=== PATIENT | male | born 1950 | race Caucasian/White ===

== ENCOUNTER 2018-12-14 08:39 | Inpatient (IN) | payer MEDICARE, OTHER ==
[2018-12-14 10:40] LABS: ADD MAN DIFF? NO
[2018-12-14 10:43] LABS: WHITE BLOOD COUNT 8.3 10^3/ul (4.8-10.8)
[2018-12-14 10:43] LABS: BASOPHILS % 0.4 % (0.0-2.0); EOSINOPHILS % 0.4 % (0.0-7.0); HEMATOCRIT 42.3 % (42.0-52.0); HEMOGLOBIN 14.6 g/dl (14.0-18.0); LYMPHOCYTES # 1.1 10^3/ul (0.8-2.9); LYMPHOCYTES % 12.7 % (15.0-51.0); MEAN CORPUSCULAR HEMOGLOBIN 32.1 pg (29.0-33.0); MEAN CORPUSCULAR HGB CONC 34.5 g/dl (32.0-37.0); MEAN PLATELET VOLUME 9.9 fl (7.4-10.4); MONOCYTES % 11.9 % (0.0-11.0); NEUTROPHIL # 6.2 10^3/ul (1.6-7.5); NEUTROPHILS % 74.2 % (39.0-77.0); PLATELET COUNT 190 10^3/UL (140-415); RED BLOOD COUNT 4.55 10^6/ul (4.70-6.10)
[2018-12-14 11:02] LABS: INR 0.98; PROTIME 13.1 Sec (11.9-14.9)
[2018-12-14 11:03] LABS: PARTIAL THROMBOPLASTIN TIME 38.8 Sec (23.0-35.0)
[2018-12-14 11:28] LABS: TROPONIN-I 0.621 ng/ml (0.000-0.120)
[2018-12-14 11:48] LABS: ANION GAP 11 (5-13); BLOOD UREA NITROGEN 25 mg/dl (7-20); CALCIUM 9.8 mg/dl (8.4-10.2); CARBON DIOXIDE 24 mmol/L (21-31); CHLORIDE 102 mmol/L (97-110); CHOL/HDL RATIO 3.3 RATIO; CHOLESTEROL 150 mg/dl (100-200); CREATININE 0.98 mg/dl (0.61-1.24); Estimated GFR > 60 mL/min (>60); GLUCOSE 136 mg/dl (70-220); HDL CHOLESTEROL 45 mg/dl (30-78); LDL CHOLESTEROL,CALCULATED 94 mg/dl; POTASSIUM 4.4 mmol/L (3.5-5.1); SODIUM 137 mmol/L (135-144); TRIGLYCERIDES 55 mg/dl (0-149)
[2018-12-14 12:22] LABS: HEMOGLOBIN A1C 5.5 % (0-5.9)
[2018-12-14] MEDS ORDERED: ACETAMINOPHEN 325 MG TAB PO (13:00)
[2018-12-14] MEDS ORDERED: ONDANSETRON 4 MG INJ IV (13:00)
[2018-12-14] MEDS: ASPIRIN 81 MG TAB PO (13:32)
[2018-12-14] MEDS ORDERED: NACL 0.9% 3 ML SYG IV (14:00)
[2018-12-14] MEDS: ASPIRIN 300 MG SUPP PR (14:05)
[2018-12-14] MEDS: QUETIAPINE 25 MG TAB NGT ×2 (16:24→22:53)
[2018-12-14] MEDS: DIAZEPAM 5 MG TAB PO (16:24)
[2018-12-14] MEDS: predniSONE 20 MG TAB PO (16:25)
[2018-12-14 17:09] LABS: TROPONIN-I 0.667 ng/ml (0.000-0.120)
[2018-12-14] MEDS: ALBUTEROL/IPRATROPIUM (NEB) 3 ML AMP HHN (20:47)
[2018-12-14] MEDS: LORAZEPAM 2 MG INJ IV (23:39)
[2018-12-15] MEDS: ALBUTEROL/IPRATROPIUM (NEB) 3 ML AMP HHN ×6 (01:24→20:28)
[2018-12-15 06:35] LABS: ADD MAN DIFF? NO
[2018-12-15 06:43] LABS: BASOPHILS % 0.2 % (0.0-2.0); HEMATOCRIT 42.5 % (42.0-52.0); HEMOGLOBIN 14.3 g/dl (14.0-18.0); LYMPHOCYTES # 1.2 10^3/ul (0.8-2.9); LYMPHOCYTES % 12.4 % (15.0-51.0); MEAN CORPUSCULAR HEMOGLOBIN 31.9 pg (29.0-33.0); MEAN CORPUSCULAR HGB CONC 33.6 g/dl (32.0-37.0); MEAN CORPUSCULAR VOLUME 94.9 fl (82.0-101.0); MEAN PLATELET VOLUME 10.3 fl (7.4-10.4); MONOCYTE # 0.8 10^3/ul (0.3-0.9); MONOCYTES % 8.4 % (0.0-11.0); NEUTROPHIL # 7.9 10^3/ul (1.6-7.5); NEUTROPHILS % 78.5 % (39.0-77.0); PLATELET COUNT 225 10^3/UL (140-415); RED BLOOD COUNT 4.48 10^6/ul (4.70-6.10)
[2018-12-15 07:27] LABS: ALANINE AMINOTRANSFERASE 22 IU/L (13-69); ALBUMIN 4.1 g/dl (3.3-4.9); ALBUMIN/GLOBULIN RATIO 1.24; ALKALINE PHOSPHATASE 109 IU/L (42-121); ANION GAP 13 (5-13); ASPARTATE AMINO TRANSFERASE 28 IU/L (15-46); BILIRUBIN,INDIRECT 0.5 mg/dl (0-1.1); BILIRUBIN,TOTAL 0.5 mg/dl (0.2-1.3); BLOOD UREA NITROGEN 17 mg/dl (7-20); CALCIUM 10.1 mg/dl (8.4-10.2); CARBON DIOXIDE 24 mmol/L (21-31); CHLORIDE 106 mmol/L (97-110); CREATININE 0.79 mg/dl (0.61-1.24); Estimated GFR > 60 mL/min (>60); GLUCOSE 107 mg/dl (70-220); POTASSIUM 4.1 mmol/L (3.5-5.1); SODIUM 143 mmol/L (135-144); TOTAL PROTEIN 7.4 g/dl (6.1-8.1)
[2018-12-15 07:49] LABS: TROPONIN-I 0.603 ng/ml (0.000-0.120)
[2018-12-15] MEDS: QUETIAPINE 25 MG TAB NGT (08:20)
[2018-12-15] MEDS: predniSONE 20 MG TAB PO (08:20)
[2018-12-15] MEDS: ASPIRIN 81 MG TAB PO (08:20)
[2018-12-15] MEDS: ENOXAPARIN 30 MG/0.3 ML SYG SC (08:21)
[2018-12-15 08:55] LABS: HEMOGLOBIN A1C 5.5 % (0-5.9)
[2018-12-15] MEDS: QUETIAPINE 25 MG TAB PO (10:24)
[2018-12-15] MEDS: LORAZEPAM 2 MG INJ IV (16:02)
[2018-12-15] MEDS ORDERED: MAGNESIUM HYDROXIDE 30ML CUP PO (17:00)
[2018-12-15] MEDS ORDERED: ALBUTEROL HFA 8 GM INHALER INH (17:00)
[2018-12-15] MEDS ORDERED: hydrOXYzine PAMOATE 25 MG CAP PO (18:30)
[2018-12-15] MEDS: traZODone 50 MG TAB PO (20:43)
[2018-12-15] MEDS: ATORVASTATIN 20 MG TAB PO (20:43)
[2018-12-15] MEDS: QUETIAPINE 100 MG TAB PO (20:43)
[2018-12-15] MEDS ORDERED: QUETIAPINE 25 MG TAB PO (21:00)
[2018-12-16] MEDS: LORAZEPAM 2 MG INJ IV ×3 (00:21→13:23)
[2018-12-16] MEDS: ALBUTEROL/IPRATROPIUM (NEB) 3 ML AMP HHN ×6 (00:23→20:14)
[2018-12-16] MEDS ORDERED: DIPHENHYDRAMINE 50 MG INJ (01:35)
[2018-12-16] MEDS: HALOPERIDOL 5 MG INJ IM (01:44)
[2018-12-16] MEDS: DIPHENHYDRAMINE 50 MG INJ IV (01:45)
[2018-12-16 06:35] LABS: ADD MAN DIFF? NO
[2018-12-16 06:53] LABS: BASOPHIL # 0.1 10^3/ul (0.0-0.1); BASOPHILS % 0.6 % (0.0-2.0); EOSINOPHILS # 0.1 10^3/ul (0.0-0.5); EOSINOPHILS % 0.7 % (0.0-7.0); HEMATOCRIT 43.2 % (42.0-52.0); HEMOGLOBIN 14.4 g/dl (14.0-18.0); LYMPHOCYTES # 3.7 10^3/ul (0.8-2.9); LYMPHOCYTES % 29.9 % (15.0-51.0); MEAN CORPUSCULAR HEMOGLOBIN 31.7 pg (29.0-33.0); MEAN CORPUSCULAR HGB CONC 33.3 g/dl (32.0-37.0); MEAN CORPUSCULAR VOLUME 95.2 fl (82.0-101.0); MEAN PLATELET VOLUME 11.4 fl (7.4-10.4); MONOCYTE # 1.3 10^3/ul (0.3-0.9); MONOCYTES % 10.6 % (0.0-11.0); NEUTROPHIL # 7.2 10^3/ul (1.6-7.5); NEUTROPHILS % 57.9 % (39.0-77.0); PLATELET COUNT 183 10^3/UL (140-415); RED BLOOD COUNT 4.54 10^6/ul (4.70-6.10); RED CELL DISTRIBUTION WIDTH 13.2 % (11.5-14.5)
[2018-12-16 06:53] LABS: WHITE BLOOD COUNT 12.4 10^3/ul (4.8-10.8)
[2018-12-16 07:05] LABS: PHOSPHORUS 3.9 mg/dl (2.5-4.9)
[2018-12-16 07:14] LABS: ALANINE AMINOTRANSFERASE 20 IU/L (13-69); ALBUMIN 3.9 g/dl (3.3-4.9); ALBUMIN/GLOBULIN RATIO 1.11; ALKALINE PHOSPHATASE 94 IU/L (42-121); ANION GAP 7 (5-13); ASPARTATE AMINO TRANSFERASE 26 IU/L (15-46); BILIRUBIN,INDIRECT 0.5 mg/dl (0-1.1); BILIRUBIN,TOTAL 0.5 mg/dl (0.2-1.3); BLOOD UREA NITROGEN 16 mg/dl (7-20); CALCIUM 9.6 mg/dl (8.4-10.2); CARBON DIOXIDE 29 mmol/L (21-31); CHLORIDE 103 mmol/L (97-110); CREATININE 0.74 mg/dl (0.61-1.24); Estimated GFR > 60 mL/min (>60); GLUCOSE 92 mg/dl (70-220); POTASSIUM 3.6 mmol/L (3.5-5.1); SODIUM 139 mmol/L (135-144); TOTAL PROTEIN 7.4 g/dl (6.1-8.1); TROPONIN-I 0.517 ng/ml (0.000-0.120)
[2018-12-16] MEDS: ASPIRIN (EC) 81 MG TAB PO (08:44)
[2018-12-16] MEDS: predniSONE 20 MG TAB PO (08:44)
[2018-12-16] MEDS: QUETIAPINE 25 MG TAB PO (08:44)
[2018-12-16] MEDS: ESCITALOPRAM 10 MG TAB PO (08:44)
[2018-12-16] MEDS: BENAZEPRIL 10 MG TAB PO (08:45)
[2018-12-16] MEDS: ENOXAPARIN 30 MG/0.3 ML SYG SC (08:48)
[2018-12-16] MEDS: ATORVASTATIN 20 MG TAB PO (21:21)
[2018-12-16] MEDS: QUETIAPINE 100 MG TAB PO (21:21)
[2018-12-16] MEDS: traZODone 50 MG TAB PO (21:21)
[2018-12-17] MEDS: ALBUTEROL/IPRATROPIUM (NEB) 3 ML AMP HHN ×6 (01:38→20:24)
[2018-12-17] MEDS: BENAZEPRIL 10 MG TAB PO (08:23)
[2018-12-17] MEDS: ESCITALOPRAM 10 MG TAB PO (08:23)
[2018-12-17] MEDS: predniSONE 20 MG TAB PO (08:23)
[2018-12-17] MEDS: ASPIRIN (EC) 81 MG TAB PO (08:23)
[2018-12-17] MEDS: QUETIAPINE 25 MG TAB PO (08:23)
[2018-12-17] MEDS: ENOXAPARIN 30 MG/0.3 ML SYG SC (08:31)
[2018-12-17] MEDS: traZODone 50 MG TAB PO (20:22)
[2018-12-17] MEDS: QUETIAPINE 100 MG TAB PO (20:22)
[2018-12-17] MEDS: ATORVASTATIN 20 MG TAB PO (20:22)
[2018-12-18] MEDS: ALBUTEROL/IPRATROPIUM (NEB) 3 ML AMP HHN ×6 (01:00→21:00)
[2018-12-18] MEDS: QUETIAPINE 25 MG TAB PO (08:46)
[2018-12-18] MEDS: ESCITALOPRAM 10 MG TAB PO (08:46)
[2018-12-18] MEDS: ASPIRIN (EC) 81 MG TAB PO (08:46)
[2018-12-18] MEDS: BENAZEPRIL 10 MG TAB PO (08:49)
[2018-12-18] MEDS: ENOXAPARIN 30 MG/0.3 ML SYG SC (08:51)
[2018-12-18] MEDS ORDERED: ALBUTEROL HFA 8 GM INHALER INH ×2 (09:00)
[2018-12-18] MEDS: LORAZEPAM 2 MG INJ IV (16:01)
[2018-12-18] MEDS: ATORVASTATIN 20 MG TAB PO (20:35)
[2018-12-18] MEDS: QUETIAPINE 100 MG TAB PO (20:35)
[2018-12-18] MEDS: traZODone 50 MG TAB PO (20:35)
[2018-12-19] MEDS: ALBUTEROL/IPRATROPIUM (NEB) 3 ML AMP HHN ×6 (00:52→21:00)
[2018-12-19] MEDS: hydrALAzine 20 MG INJ IV (02:07)
[2018-12-19] MEDS: ENOXAPARIN 30 MG/0.3 ML SYG SC (09:00)
[2018-12-19] MEDS: ESCITALOPRAM 10 MG TAB PO (09:07)
[2018-12-19] MEDS: BENAZEPRIL 10 MG TAB PO (09:08)
[2018-12-19] MEDS: ASPIRIN (EC) 81 MG TAB PO (09:08)
[2018-12-19] MEDS: QUETIAPINE 25 MG TAB PO (09:08)
[2018-12-19] MEDS: LORAZEPAM 2 MG INJ IV (14:08)
[2018-12-19] MEDS: traZODone 50 MG TAB PO (20:38)
[2018-12-19] MEDS: ATORVASTATIN 20 MG TAB PO (20:38)
[2018-12-19] MEDS: QUETIAPINE 100 MG TAB PO (20:38)
[2018-12-20] MEDS: ALBUTEROL/IPRATROPIUM (NEB) 3 ML AMP HHN ×6 (01:00→21:00)
[2018-12-20] MEDS: BENAZEPRIL 10 MG TAB PO (09:04)
[2018-12-20] MEDS: QUETIAPINE 25 MG TAB PO (09:04)
[2018-12-20] MEDS: ESCITALOPRAM 10 MG TAB PO (09:04)
[2018-12-20] MEDS: ASPIRIN (EC) 81 MG TAB PO (09:04)
[2018-12-20] MEDS: ENOXAPARIN 30 MG/0.3 ML SYG SC (09:05)
[2018-12-20] MEDS: LORAZEPAM 2 MG INJ IV (13:19)
[2018-12-20] MEDS: ATORVASTATIN 20 MG TAB PO (21:00)
[2018-12-20] MEDS: traZODone 50 MG TAB PO (21:00)
[2018-12-20] MEDS: QUETIAPINE 100 MG TAB PO (21:00)
[2018-12-21] MEDS: ALBUTEROL/IPRATROPIUM (NEB) 3 ML AMP HHN ×6 (00:39→20:50)
[2018-12-21] MEDS: ASPIRIN (EC) 81 MG TAB PO (09:00)
[2018-12-21] MEDS: ESCITALOPRAM 10 MG TAB PO (09:00)
[2018-12-21] MEDS: ENOXAPARIN 30 MG/0.3 ML SYG SC (09:00)
[2018-12-21] MEDS: QUETIAPINE 25 MG TAB PO (09:00)
[2018-12-21] MEDS: BENAZEPRIL 10 MG TAB PO (09:00)
[2018-12-21] MEDS: LORAZEPAM 2 MG INJ IV (13:23)
[2018-12-21] MEDS: HYDROCODONE/APAP (5/325) TAB PO (18:41)
[2018-12-21] MEDS: ATORVASTATIN 20 MG TAB PO (21:00)
[2018-12-21] MEDS: QUETIAPINE 100 MG TAB PO (21:00)
[2018-12-21] MEDS: traZODone 50 MG TAB PO (21:00)
[2018-12-22] MEDS: ALBUTEROL/IPRATROPIUM (NEB) 3 ML AMP HHN ×6 (00:21→21:00)
[2018-12-22] MEDS: hydrALAzine 20 MG INJ IV ×2 (02:06→10:37)
[2018-12-22] MEDS: LORAZEPAM 2 MG INJ IV ×2 (08:36→10:02)
[2018-12-22] MEDS: BENAZEPRIL 10 MG TAB PO (08:36)
[2018-12-22] MEDS: ASPIRIN (EC) 81 MG TAB PO (08:55)
[2018-12-22] MEDS: ESCITALOPRAM 10 MG TAB PO (08:55)
[2018-12-22] MEDS: QUETIAPINE 25 MG TAB PO ×2 (08:55→11:34)
[2018-12-22] MEDS: ENOXAPARIN 30 MG/0.3 ML SYG SC (08:56)
[2018-12-22] MEDS: QUETIAPINE 100 MG TAB PO (20:38)
[2018-12-23] MEDS: ALBUTEROL/IPRATROPIUM (NEB) 3 ML AMP HHN ×6 (01:00→20:24)
[2018-12-23] MEDS: ENOXAPARIN 30 MG/0.3 ML SYG SC (09:00)
[2018-12-23] MEDS: BENAZEPRIL 10 MG TAB PO (09:00)
[2018-12-23] MEDS: QUETIAPINE 25 MG TAB PO (09:00)
[2018-12-23] MEDS: LORAZEPAM 2 MG INJ IV (12:07)
[2018-12-23] MEDS: QUETIAPINE 100 MG TAB PO (20:19)
[2018-12-24] MEDS: ALBUTEROL/IPRATROPIUM (NEB) 3 ML AMP HHN ×6 (01:00→21:00)
[2018-12-24] MEDS: QUETIAPINE 25 MG TAB PO (08:28)
[2018-12-24] MEDS: ENOXAPARIN 30 MG/0.3 ML SYG SC (08:31)
[2018-12-24] MEDS: BENAZEPRIL 10 MG TAB PO ×2 (08:31→20:16)
[2018-12-24] MEDS: QUETIAPINE 100 MG TAB PO (20:16)
[2018-12-24] MEDS: LORAZEPAM 2 MG INJ IV (20:18)
[2018-12-25] MEDS: ALBUTEROL/IPRATROPIUM (NEB) 3 ML AMP HHN ×6 (01:00→21:00)
[2018-12-25] MEDS: BENAZEPRIL 10 MG TAB PO (08:11)
[2018-12-25] MEDS: QUETIAPINE 25 MG TAB PO (08:11)
[2018-12-25] MEDS: ENOXAPARIN 30 MG/0.3 ML SYG SC (08:13)
[2018-12-25] MEDS: QUETIAPINE 100 MG TAB PO (20:47)
[2018-12-26] MEDS: ALBUTEROL/IPRATROPIUM (NEB) 3 ML AMP HHN ×6 (01:00→21:00)
[2018-12-26] MEDS: BENAZEPRIL 10 MG TAB PO (08:18)
[2018-12-26] MEDS: QUETIAPINE 25 MG TAB PO (08:18)
[2018-12-26] MEDS: ENOXAPARIN 30 MG/0.3 ML SYG SC (08:19)
[2018-12-26] MEDS: HYDROCODONE/APAP (5/325) TAB PO (19:59)
[2018-12-26] MEDS: QUETIAPINE 100 MG TAB PO (20:00)
[2018-12-27] MEDS: ALBUTEROL/IPRATROPIUM (NEB) 3 ML AMP HHN ×6 (01:00→21:00)
[2018-12-27] MEDS: QUETIAPINE 25 MG TAB PO (09:09)
[2018-12-27] MEDS: ENOXAPARIN 30 MG/0.3 ML SYG SC (09:09)
[2018-12-27] MEDS: BENAZEPRIL 10 MG TAB PO (09:10)
[2018-12-27] MEDS: QUETIAPINE 100 MG TAB PO (21:37)
[2018-12-27] MEDS: LORAZEPAM 2 MG INJ IV (21:38)
[2018-12-28] MEDS: ALBUTEROL/IPRATROPIUM (NEB) 3 ML AMP HHN ×6 (00:33→21:00)
[2018-12-28] MEDS: QUETIAPINE 25 MG TAB PO (09:16)
[2018-12-28] MEDS: BENAZEPRIL 10 MG TAB PO (09:17)
[2018-12-28] MEDS: ENOXAPARIN 30 MG/0.3 ML SYG SC (09:20)
[2018-12-28] MEDS: LORAZEPAM 2 MG INJ IV (18:48)
[2018-12-28] MEDS: QUETIAPINE 100 MG TAB PO (21:04)
[2018-12-29] MEDS: ALBUTEROL/IPRATROPIUM (NEB) 3 ML AMP HHN ×6 (01:00→20:19)
[2018-12-29] MEDS: BENAZEPRIL 10 MG TAB PO (08:56)
[2018-12-29] MEDS: QUETIAPINE 25 MG TAB PO (08:56)
[2018-12-29] MEDS: ENOXAPARIN 30 MG/0.3 ML SYG SC (08:58)
[2018-12-29] MEDS: QUETIAPINE 100 MG TAB PO (20:15)
[2018-12-30] MEDS: ALBUTEROL/IPRATROPIUM (NEB) 3 ML AMP HHN ×5 (01:00→20:18)
[2018-12-30] MEDS: QUETIAPINE 25 MG TAB PO (09:03)
[2018-12-30] MEDS: BENAZEPRIL 10 MG TAB PO (09:05)
[2018-12-30] MEDS: ENOXAPARIN 30 MG/0.3 ML SYG SC (09:06)
[2018-12-30] MEDS: QUETIAPINE 100 MG TAB PO (21:21)
[2018-12-31] MEDS: ALBUTEROL/IPRATROPIUM (NEB) 3 ML AMP HHN ×5 (01:00→20:01)
[2018-12-31] MEDS: QUETIAPINE 25 MG TAB PO (08:38)
[2018-12-31] MEDS: ENOXAPARIN 30 MG/0.3 ML SYG SC (08:39)
[2018-12-31] MEDS: BENAZEPRIL 10 MG TAB PO (08:39)
[2018-12-31] MEDS: LORAZEPAM 1 MG TAB PO (18:15)
[2018-12-31] MEDS: QUETIAPINE 100 MG TAB PO (20:58)
[2019-01-01] MEDS: ALBUTEROL/IPRATROPIUM (NEB) 3 ML AMP HHN ×5 (00:08→12:52)
[2019-01-01] MEDS: QUETIAPINE 25 MG TAB PO (09:09)
[2019-01-01] MEDS: BENAZEPRIL 10 MG TAB PO (09:09)
[2019-01-01] MEDS: ENOXAPARIN 30 MG/0.3 ML SYG SC (09:11)
== END 2019-01-01 19:50 | disposition home or self-care (01) | DRG 190 ==
LOC: E/R 08:39 → 5EC 12-17 15:12 → TEL 12:57
DX: J44.1 Chronic obstructive pulmonary disease with (acute) exacerbation (principal); I21.A1 Myocardial infarction type 2; G93.49 Other encephalopathy; G93.40 Encephalopathy, unspecified; T43.591A Poisoning by other antipsychotics and neuroleptics, accidental (unintentional), initial encounter; F20.9 Schizophrenia, unspecified; I10 Essential (primary) hypertension; R47.1 Dysarthria and anarthria; R09.02 Hypoxemia; R00.0 Tachycardia, unspecified
CPT/HCPCS: 36415; 70450; 71045; 80048; 80053; 80061; 83036; 83735; 84100; 84484; 85025; 85610; 85730; 87081; 90686; 92526; 92610; 93005; 93306; 94640; 94664; 99285-25

== ENCOUNTER 2019-03-17 13:51 | Emergency (ER) | payer SELFPAY, OTHER, MEDICARE | END 2019-03-17 15:46 | disposition left against medical advice (07) | LOC: E/R 13:51 | DX: Z53.21 Procedure and treatment not carried out due to patient leaving prior to being seen by health care provider (principal) ==